=== PATIENT | female | born 1995 | race Caucasian/White ===

== ENCOUNTER 2022-02-27 17:43 | Observation (INO) ==
[2022-02-27 18:25] LABS: Amorphous Sediment,Urine Few per hpf (None-Few); Bilirubin,Urine Negative (Negative); Blood,Urine Negative (Negative); Clarity,Urine Turbid (Clear); Color,Urine Yellow (Yellow); Glucose,Urine (UA) Normal (Normal); Ketones,Urine Negative (Negative); Leukocyte Esterase,Urine Moderate (Negative); Mucus,Urine Many per lpf (None-Few); Nitrite,Urine Positive (Negative); Protein,Urine 30 mg/dL (Neg-Trace); Specific Gravity,Urine 1.028 (1.010-1.025); Squamous Epithelial Cell,Urine Moderate per hpf (None-Few)
[2022-02-27 18:27] LABS: Basophils # 0.1 K/mcL (0.0-0.2); Basophils % 0.8 %; Eosinophils # 0.1 K/mcL (0.0-0.6); Eosinophils % 1.3 %; Hematocrit 43.7 % (35.3-44.9); Hemoglobin 14.7 g/dL (11.5-15.4); Immature Granulocytes % 0.5 % (0-4); Lymphocytes # 2.2 K/mcL (0.6-4.6); Lymphocytes % 21.6 %; Mean Corpuscular HGB Conc 33.6 g/dL (31.6-35.5); Mean Corpuscular Hemoglobin 27.5 pg (28.0-33.3); Mean Corpuscular Volume 81.8 fL (83.0-100.0); Mean Platelet Volume 11.3 fL (9.4-12.4); Monocytes # 0.5 K/mcL (0.0-1.3); Neutrophils # 7.1 K/mcL (1.6-8.9); Platelet Count 361 K/mcL (140-400); Red Blood Count 5.34 M/mcL (3.82-4.97); Red Cell Distribution Width 12.9 % (11.5-14.5); Segmented Neutrophils % 70.8 %
[2022-02-27 18:42] LABS: Amphetamine Screen,Urine Negative ng/mL (Cutoff=1000); Barbiturate Screen,Urine Negative ng/mL (Cutoff=200); Benzodiazepines Screen,Urine Negative ng/mL (Cutoff=200); Cannabinoid Screen,Urine Positive ng/mL (Cutoff = 50); Cocaine Screen,Urine Negative ng/mL (Cutoff= 300); Opiate Screen,Urine Negative ng/mL (Cutoff=300); Phencyclidine Screen,Urine Negative ng/mL (Cutoff=25)
[2022-02-27 18:49] LABS: Acetaminophen < 10 mcg/mL (10-20); BUN/Creatinine Ratio 9 (6-26); Blood Urea Nitrogen 7 mg/dL (6-20); Calcium 9.9 mg/dL (8.6-10.3); Carbon Dioxide 25 mEq/L (23-29); Chloride 106 mEq/L (98-107); Ethanol < 10 mg/dL (Less than 10); Glucose 99 mg/dL (70-105); Osmolality,Calculated 282 (280-300); Potassium 3.7 mEq/L (3.5-5.1); Salicylate < 2.5 mg/dL (15.0-30.0); Sodium 137 mEq/L (136-145)
[2022-02-27] MEDS: cephALEXin 500 MG CAPSULE PO SCH (21:06)
[2022-02-27 23:34] LABS: Influenza A PCR Negative (Negative); Influenza B PCR Negative (Negative); Resp. Syncytial Virus PCR Negative (Negative)
[2022-02-27 23:35] LABS: SARS-CoV-2 by PCR (In House) Negative (Negative)
[2022-02-27] MEDS ORDERED: haloperidoL 5 MG TABLET PO PRN (23:45)
[2022-02-27] MEDS ORDERED: Haloperidol Lactate 5 MG/ML VIAL IM PRN (23:45)
[2022-02-27] MEDS ORDERED: hydrOXYzine pamoate 25 MG CAPSULE PO PRN (23:45)
[2022-02-27] MEDS ORDERED: Acetaminophen 325 MG TABLET PO PRN (23:45)
[2022-02-27] MEDS ORDERED: *HR* LORazepam 2 MG/ML VIAL IM PRN (23:45)
[2022-02-27] MEDS ORDERED: *HR* LORazepam 1 MG TABLET PO PRN (23:45)
[2022-02-27] MEDS ORDERED: traZODone 50 MG TABLET PO PRN (23:45)
[2022-02-28] MEDS: cephALEXin 500 MG CAPSULE PO SCH ×2 (08:49→12:53)
[2022-02-28 09:04] VITALS: BP 104/76; PULSE 99; TEMP 98; O2SAT 100
[2022-02-28] MEDS ORDERED: Gabapentin 100 MG CAPSULE PO SCH (10:15)
[2022-02-28] MEDS ORDERED: FLUoxetine 20 MG CAPSULE PO SCH (10:15)
[2022-02-28] MEDS ORDERED: Mag Hydrox/Al Hydrox/Simeth 30 ML UDC PO PRN (10:15)
[2022-02-28] MEDS ORDERED: MOM Conc 10 ML UD.LIQ PO PRN (10:15)
[2022-02-28] MEDS ORDERED: risperiDONE 1 MG TABLET PO SCH ×2 (21:00)
== END 2022-02-28 17:55 | disposition home or self-care (01) ==
LOC: EMEROOARM 17:43 → 1ANU 23:42 → INTOOBSV 23:42 → 1ANU 23:58
PROVIDERS: ADMIT Psychiatry & Neurology Psychiatry; ATTEND Psychiatry & Neurology Psychiatry